=== PATIENT | female | born 1940 ===

== ENCOUNTER 2017-01-08 06:57 | Emergency (ER) | payer MEDICARE, OTHER ==
[2017-01-08 06:57] VITALS: BMI 26.5
[2017-01-08 07:06] VITALS: RESP 20
--- NOTE | 2017-01-08 07:37 | C.PDOC ---
History Of Present Illness 76 y/o female presents to ED with complaints of left forearm pain and swelling since this morning. Patient reports that she was sleeping in bed today when she was startled by the phone ringing, rolled over to get phone, and fell out of bed , hitting her L arm on her bedside dresser. Patient denies head trauma or LOC. Patient is ambulatory and denies loc, head injury, headache, chest pain, abdominal pain, leg pain, hip pain. She reports aspirin 81mg daily use. Time Seen by Provider: 01/08/17 07:07 Chief Complaint (Nursing): Upper Extremity Problem/Injury History Per: Patient History/Exam Limitations: no limitations Onset/Duration Of Symptoms: Hrs Current Symptoms Are (Timing): Still Present Quality: "Pain" Past Medical History Reviewed: Historical Data, Nursing Documentation, Vital Signs Vital Signs: Last Vital Signs Temp 97.9 F 01/08/17 08:29 Pulse 61 01/08/17 08:29 Resp 20 01/08/17 08:29 BP 145/73 01/08/17 08:29 Pulse Ox 98 01/08/17 08:29 - Medical History PMH: Fractures (right ankle), HTN, Hypercholesterolemia, Hypothyroidism, Rheumatoid Arthritis Family History: States: No Known Family Hx - Social History Hx Alcohol Use: No Hx Substance Use: No - Immunization History Hx Influenza Vaccination: No Hx Pneumococcal Vaccination: No Review Of Systems Except As Marked, All Systems Reviewed And Found Negative. Constitutional: Negative for: Fever, Sweats Eyes: Negative for: Vision Change Cardiovascular: Negative for: Chest Pain, Palpitations, Orthopnea Respiratory: Negative for: Cough, Shortness of Breath, SOB with Excertion, Wheezing Gastrointestinal: Negative for: Nausea, Vomiting, Abdominal Pain, Diarrhea, Constipation Genitourinary: Negative for: Dysuria Musculoskeletal: Positive for: Arm Pain. Negative for: Neck Pain, Shoulder Pain , Back Pain, Leg Pain Skin: Negative for: Rash Neurological: Negative for: Weakness, Numbness, Incoordination, Confusion, Seizures, Altered Mental Status, Headache, Dizziness Physical Exam - Physical Exam Appears: Well, Non-toxic, No Acute Distress Skin: Normal Color, Warm, No Rash Head: Atraumatic, Normacephalic Eye(s): bilateral: Normal Inspection, PERRL, EOMI Oral Mucosa: Moist Neck: Normal ROM, No Midline Cervical Tenderness, Supple Chest: Symmetrical, No Deformity, No Tenderness Cardiovascular: Rhythm Regular Respiratory: Normal Breath Sounds, No Rales, No Wheezing Gastrointestinal/Abdominal: Soft, No Tenderness, No Distention, No Guarding, No Rebound Back: Normal Inspection, No CVA Tenderness Extremity: Normal ROM, Capillary Refill (<2 seconds), No Deformity, Other ( Hematoma to left forearm) Pulses: Left Radial: Normal, Right Radial: Normal Neurological/Psych: Oriented x3, Normal Motor, Normal Sensation Gait: Steady ED Course And Treatment - Laboratory Results Result Diagrams: 01/08/17 07:35 01/08/17 07:35 O2 Sat by Pulse Oximetry: 99 (RA) Pulse Ox Interpretation: Normal - Other Rad Left elbow X-Ray: Interpreted by Me, Viewed By Me, Read By Radiologist Interpretation: FINDINGS: BONES: Ulnar coronoid process mild spurring. No fracture. JOINTS: Normal. No osteoarthritis. SOFT TISSUES: Subcutaneous reticulated edema present. JOINT EFFUSION: None. OTHER FINDINGS: None. IMPRESSION: No fracture. Left forearm X-Ray: Interpreted by Me, Viewed By Me, Read By Radiologist Interpretation: FINDINGS: BONES: No fracture or destructive lesion. Coronoid spurring. JOINT SPACES: Unremarkable. OTHER FINDINGS: Soft tissue reticulated edema. IMPRESSION: No fracture or dislocation Medical Decision Making Medical Decision Making: Patient's xray is negative for fracture. Coagulation studies WNL. Hgb WNL. Labs significant for thrombocytopenia- with prior chart showing history of. Used [employer] retail service merchandiser to explain to patient the need for follow-up and she reports follow-up with PMD in 5 days. Patient has hematoma and swelling, but no fracture and compartment is soft with distal pulses intact and normal ROM. She was given detailed return instructions and ambulated out of ED without issue. Disposition - Disposition Disposition: HOME/ ROUTINE Disposition Time: 08:03 Condition: GOOD Additional Instructions: You need to follow-up for your thrombocytopenia (low platelets) with your PMD. Return to ED if condition worsens. Instructions: Fall Prevention for Older Adults (ED), Thrombocytopenia (ED) Forms: [employer] (Sudanese) Print Language: DANISH - Clinical Impression Clinical Impression: Arm contusion, Thrombocytopenia - Scribe Statement The provider has reviewed the documentation as recorded by the Elenaibrolo Mckeon All medical record entries made by the Scribe were at my direction and personally dictated by me. I have reviewed the chart and agree that the record accurately reflects my personal performance of the history, physical exam, medical decision making, and the department course for this patient. I have also personally directed, reviewed, and agree with the discharge instructions and disposition.
[2017-01-08 07:43] LABS: BASO % 0.6 % (0.0-2.0); EOS # 0.1 K/uL (0.0-0.7); EOS % 2.3 % (0.0-4.0); HEMATOCRIT 34.4 % (34.0-47.0); LYMPH # 0.9 K/uL (1.0-4.3); LYMPH % 15.9 % (20.0-40.0); MEAN CELL VOLUME 91.6 fL (81.0-99.0); MEAN CORPUSCULAR HGB CONC 33.9 g/dL (33.0-37.0); MEAN PLATELET VOLUME 8.9 fL (7.2-11.7); MONO # 0.3 K/uL (0.0-0.8); MONO % 5.4 % (0.0-10.0); RED CELL DISTRIBUTION WIDTH 13.7 % (11.5-14.5); WHITE BLOOD COUNT 5.4 K/uL (4.8-10.8)
[2017-01-08 07:53] LABS: ALB/GLOB RATIO 1.1 (1.0-2.1); BILIRUBIN,TOTAL 0.5 mg/dL (0.2-1.3); CALCIUM 8.4 mg/dl (8.6-10.4); POTASSIUM 4.1 mmol/L (3.6-5.2)
--- NOTE | 2017-01-08 07:54 | RAD ---
PROCEDURE: Radiographs of the left elbow. HISTORY: L forearm bruising and pain after fall COMPARISON: No prior. FINDINGS: BONES: Ulnar coronoid process mild spurring. No fracture. JOINTS: Normal. No osteoarthritis. SOFT TISSUES: Subcutaneous reticulated edema present JOINT EFFUSION: None. OTHER FINDINGS: None IMPRESSION: No fracture.
--- NOTE | 2017-01-08 07:55 | RAD ---
PROCEDURE: Radiographs of the Left Forearm HISTORY: L forearm bruising and pain after fall COMPARISON: None available. TECHNIQUE: Frontal and lateral views obtained. FINDINGS: BONES: No fracture or destructive lesion. Coronoid spurring JOINT SPACES: Unremarkable. OTHER FINDINGS: Soft tissue reticulated edema IMPRESSION: No fracture or dislocation
[2017-01-08 08:30] VITALS: BP 145/73; PULSE 61; TEMP 97.9
[2017-01-08 09:19] VITALS: O2SAT 99
== END 2017-01-08 08:30 | disposition home or self-care (01) ==
LOC: C.ER 06:57
DX: S50.12XA Contusion of left forearm, initial encounter (principal); W06.XXXA Fall from bed, initial encounter; D69.6 Thrombocytopenia, unspecified

== ENCOUNTER 2018-07-09 10:01 | Outpatient (CLI) | payer MEDICARE, OTHER | END 2018-07-09 10:02 | disposition home or self-care (01) | LOC: C.MAMMO 10:01 | DX: Z12.31 Encounter for screening mammogram for malignant neoplasm of breast (principal) ==

== ENCOUNTER 2018-07-21 09:43 | Outpatient (CLI) | payer MEDICARE, OTHER | END 2018-07-21 09:44 | disposition home or self-care (01) | LOC: C.LAB 09:43 | DX: E78.5 Hyperlipidemia, unspecified (principal); N39.0 Urinary tract infection, site not specified ==